=== PATIENT | female | born 1980 | race African-American/Black ===

== ENCOUNTER 2017-01-08 11:01 | Emergency (ER) | payer MEDICAID ==
[~2017-01-08] VITALS: Ht 157.5 cm; Wt 70.3 kg
[2017-01-08 12:42] VITALS: BP 105/74
[2017-01-08] MEDS ORDERED: KETOROLAC TROMETH 60MG/2ML VIAL IM ONE (15:30)
== END 2017-01-08 15:25 | disposition home or self-care (01) ==
LOC: ER 11:01
DX: M25.562 Pain in left knee (principal)
CPT/HCPCS: 29505; 73562

== ENCOUNTER 2018-09-15 14:38 | Inpatient (IN) | payer BC, MEDICAID ==
[~2018-09-15] VITALS: Ht 157.5 cm; Wt 71.7 kg
[2018-09-15] MEDS ORDERED: ASPirin 81 mg TAB PO ONE (15:30)
[2018-09-15 16:51] LABS: Basophils # (auto) 0.1 uL; Eosinophils # (auto) 0.6 uL; Eosinophils % (auto) 8.4 % (0.0-7.0); Hematocrit 36.9 % (36.0-46.0); Hemoglobin 11.9 g/dL (12.2-16.2); Lymphocytes # (auto) 2.3 uL; Lymphocytes % (auto) 34.4 % (10.0-50.0); Mean Corpuscular Hemoglobin 27.5 pg (28.0-32.0); Mean Corpuscular Hgb Conc. 32.3 g/dL (32.0-36.0); Mean Corpuscular Volume 85.2 fL (80.0-100.0); Monocytes # (auto) 0.7 uL; Monocytes % (auto) 9.9 % (0.0-12.0); Neutrophils % (auto) 46.3 % (37.0-80.0); Nucleated Red Blood Cells % 0.1 %; Platelet Count (auto) 385 10^3/uL (140-450); Red Blood Cells 4.33 10^6/uL (4.0-5.20); White Blood Cell 6.6 10^3/uL (4.4-10.8)
[2018-09-15 17:08] LABS: Albumin 3.5 g/dL (3.4-5.0); Anion Gap 5 (5-15); Aspartate Aminotransferase 16 U/L (15-37); BUN/Creatinine Ratio 14.1; Blood Urea Nitrogen 12 mg/dL (7-18); Calcium 9.1 mg/dL (8.5-10.1); Carbon Dioxide 27 mmol/L (21-32); Chloride 106 mmol/L (98-107); GFR African American 96 mL/min; GFR Non-African American 80 mL/min; Glucose 89 mg/dL (74-106); Potassium 3.6 mmol/L (3.5-5.1); Sodium 138 mmol/L (136-145)
[2018-09-15 17:16] LABS: Alanine Aminotransferase 25 U/L (13-56); Alkaline Phosphatase 69 U/L (45-117); Bilirubin, Total < 0.1 mg/dL (0.2-1.0); Total Protein 7.9 g/dL (6.4-8.2)
[2018-09-15] MEDS ORDERED: ACETAMINOPHEN 500 MG TAB PO PRN (19:00)
[2018-09-15] MEDS ORDERED: ONDANSETRON HCL 4 MG/2 ML VIAL IV PRN (19:00)
[2018-09-15] MEDS ORDERED: MORPHINE SULF INJ 2 MG/ML SYRINGE 1ML IV PRN ×2 (19:00)
[2018-09-15] MEDS ORDERED: NITROGLYCERIN 0.4 MG SL TAB SL PRN (19:00)
[2018-09-15] MEDS ORDERED: HYDROcodone-ACET 5/325MG TAB PO PRN (19:00)
[2018-09-15 19:39] LABS: INR 0.91 (0.9-1.15); Partial Thromboplastin Time 29.2 sec (23.78-33.04); Prothrombin Time 9.8 sec (9.27-12.13)
[2018-09-15 19:42] LABS: Cholesterol 157 mg/dL (< 200); Triglycerides 121 mg/dL (< 150)
[2018-09-15 19:44] LABS: HDL Cholesterol 60 mg/dL (40-59); LDL Cholesterol 85 mg/dL (< 100)
[2018-09-15 20:16] VITALS: BP 137/95
--- NOTE | 2018-09-15 20:16 | NUR ---
TELE ADMIT FROM ER RECEIVED PATIENT VIA WHEELCHAIR FROM ER. PATIENT A/O X4, AMBULATORY. NO S/S OF DISTRESS OR SOB. NO PAIN NOTED AT THIS TIME. PATIENT STATES SHE CAME TO ER BECAUSE OF SLURRED SPEECH AND TONGUE NUMBNESS. UPDATED PATIENT ON POC AND PENDING IMAGING, VERBALIZED UNDERSTANDING. BED LOCKED IN LOW POSITION, CALL LIGHT WITHIN REACH. ALL QUESTIONS AND CONCERNS ADDRESSED. WILL CONTINUE TO MONITOR PATIENT Q1HR AND PRN.
[2018-09-15 20:18] LABS: Urine Amorphous Crystal FEW /hpf (None Seen); Urine Bacteria NONE SEEN /hpf (None Seen); Urine Blood 1+ /uL (Negative); Urine Specific Gravity 1.021 (1.001-1.035); Urine WBC 1 /hpf (0 - 5)
[2018-09-15] MEDS: ATORVASTATIN 20 MG TAB PO SCH (21:35)
[2018-09-15 22:00] VITALS: BP 137/95
[2018-09-16 05:30] VITALS: BP 142/84
--- NOTE | 2018-09-16 07:20 | NUR ---
Opening Shift Note Assumed care of patient, awake and alert. No S/S of distress/SOB or pain. Instructed on POC and to call for assist PRN, will continue to monitor for changes Q1hr and PRN. Bed locked in lowest position with two side rails up and call light in reach.
[2018-09-16 08:00] VITALS: BP 133/91
[2018-09-16 08:19] VITALS: BP 133/91
[2018-09-16] MEDS ORDERED: LORazepam 2MG/ML-1ML VIAL IV PRN (08:45)
[2018-09-16] MEDS ORDERED: ASPirin-EC 81 mg tab PO SCH (10:00)
[2018-09-16 13:30] VITALS: BP 145/80
[2018-09-16] MEDS ORDERED: GADOPENTETATE DIMEGLUMINE (10MMOL/20 ML) VIAL IV ONE (14:29)
[2018-09-16 17:00] VITALS: BP 115/69
--- NOTE | 2018-09-16 19:45 | NUR ---
OPENING SHIFT NOTE RECEIVED REPORT FROM DAYSHIFT RN. PATIENT SITTING UP IN BED WITH VISITORS AT BEDSIDE. NO S/S OF DISTRESS OR SOB. NO PAIN NOTED OR REPORTED AT THIS TIME. PATIENT A/O X4, AMBULATORY. UPDATED PATIENT ON POC, VERBALIZED UNDERSTANDING. BED LOCKED IN LOW POSITION, CALL LIGHT WITHIN REACH. WILL CONTINUE TO MONITOR PATIENT Q1HR AND PRN.
[2018-09-16] MEDS: ATORVASTATIN 20 MG TAB PO SCH (21:26)
[2018-09-16 22:00] VITALS: BP 123/71
--- NOTE | 2018-09-17 00:10 | NUR ---
Report received from NIMO Barajas. Pt currently sleeping on R side. Call light at pt's side. Bed flat and in low position.
[2018-09-17 05:00] VITALS: BP 118/73
--- NOTE | 2018-09-17 07:30 | NUR ---
OPENING SHIFT NOTE: Received report from NOC RNLa Nena. Assumed care of patient. Patient resting comfortably in bed, denies pain. Bed in lowest position, rails x2 up and call light within reach. Updated on plan of care. Will continue to monitor.
[2018-09-17 09:00] VITALS: BP 116/93
--- NOTE | 2018-09-17 09:00 | NUR ---
MD: Dr Arauz to see patient. Orders received.
[2018-09-17] MEDS ORDERED: LORazepam 2MG/ML-1ML VIAL IV PRN (09:30)
--- NOTE | 2018-09-17 11:50 | NUR ---
MD: Dr Lolita Pike to see patient.
[2018-09-17 13:00] VITALS: BP 125/84
--- NOTE | 2018-09-17 13:20 | NUR ---
MRI: Patient to MRI via wheel chair.
[2018-09-17] MEDS ORDERED: GADOPENTETATE DIMEGLUMINE (10MMOL/20 ML) VIAL IV ONE (13:31)
--- NOTE | 2018-09-17 13:50 | NUR ---
MRI: Patient returned from MRI. No signs of distress.
[2018-09-17 16:52] VITALS: BP 142/79
--- NOTE | 2018-09-17 19:08 | NUR ---
CLOSING SHIFT NOTE: Report given to NOC RNJeremy. Endorsed care of patient.
--- NOTE | 2018-09-17 19:30 | NUR ---
Opening Shift Note Assumed care of patient, awake and alert x4. No S/S of distress/SOB on ROOM AIR. Denies pain at this time. Bed locked in lowest position call light within reach. Instructed on POC and to call for assist PRN, will continue to monitor for changes Q1hr and PRN.
[2018-09-17 21:30] VITALS: BP 124/75
[2018-09-18 05:00] VITALS: BP 115/64
--- NOTE | 2018-09-18 07:30 | NUR ---
OPENING SHIFT NOTE: Received report from NOC RNJeremy. Assumed care of patient. Patient resting quietly in bed. No signs/symptoms of pain. Bed in lowest position, rails x2 up and call light within reach. Updated board on plan of care. Will continue to monitor.
[2018-09-18 08:03] VITALS: BP 113/73
--- NOTE | 2018-09-18 08:21 | NUR ---
MD: Dr Arauz on unit to see patient.
--- NOTE | 2018-09-18 10:30 | NUR ---
MD: Dr Lolita Pike to see patient.
[2018-09-18] MEDS ORDERED: LIDOCAINE 2%HCL (LOCAL ANESTH.) INJ 20ML MDV ONE (10:39)
--- NOTE | 2018-09-18 11:00 | NUR ---
RADIOLOGY: Patient taken via bed to radiology for lumbar puncture.
--- NOTE | 2018-09-18 11:40 | NUR ---
RADIOLOGY: Patient returned via bed. Patient aware of amount of time to lay flat after procedure.
[2018-09-18 12:07] VITALS: BP 129/73
[2018-09-18 13:48] LABS: Protein, CSF 33.1 mg/dL (15-45)
[2018-09-18 14:53] LABS: CSF White Blood Cells 28.8 CUMM (0-5)
[2018-09-18 16:33] VITALS: BP 131/89
--- NOTE | 2018-09-18 17:45 | NUR ---
Patient ambulating on and off unit with family.
--- NOTE | 2018-09-18 19:12 | NUR ---
CLOSING SHIFT NOTE: Report given to NOC RNJeremy. Endorsed care of patient.
[2018-09-18 21:30] VITALS: BP 125/65
[2018-09-19 05:00] VITALS: BP 122/72
[2018-09-19 06:06] LABS: Serum Albumin 4.1 g/dL (3.5-5.5)
--- NOTE | 2018-09-19 07:50 | NUR ---
Opening Shift Note Assumed care of patient, awake, A&ox4. No S/S of distress/SOB or pain. Bed at lowest position and call light within reach. Instructed on POC and to call for assistance PRN, will continue to monitor for changes Q1hr and PRN.
[2018-09-19 08:00] VITALS: BP 116/75
[2018-09-19 08:10] LABS: Immunoglobulin G, Serum 1700 mg/dL (700-1600)
[2018-09-19 09:00] VITALS: BP 116/75
[2018-09-19 13:00] VITALS: BP 134/82
--- NOTE | 2018-09-19 14:30 | NUR ---
Discharge instructions given as ordered. Encourage to follow up with PMD as instructed. All questions and concerns addressed. Patient verbalized understanding. IV removed with catheter intact, pressure dressing applied. Telemetry unit returned to ICU. Patient ambulated to vehicle with all personal belongings, accompanied by staff and family members. No distress noted at time of departure.
[2018-09-22 14:11] LABS: Albumin, CSF 13 mg/dL (11-48); CSF IgG Index 0.9 (0.0-0.7); CSF/Serum Alb. Index 3 (0-8); IgG, Quant, CSF 4.8 mg/dL (0.0-8.6); IgG, Syn Rate,CSF 5.3 mg/day (-9.9 TO +3.3); IgG/Alb Ratio, CSF 0.37 (0.00-0.25)
== END 2018-09-19 14:30 | disposition home or self-care (01) | DRG 69 ==
LOC: ER 14:40 → TELE 18:49 → TELE-WESTW 20:16
PROVIDERS: ADMIT Nurse Practitioner Acute Care; ATTEND Family Medicine
PROC: 009U3ZZ Drainage of Spinal Canal, Percutaneous Approach (ICD-10-PCS; principal; 2018-09-18)
PROC: B01B1ZZ Fluoroscopy of Spinal Cord using Low Osmolar Contrast (ICD-10-PCS; 2018-09-18)
DX: G45.9 Transient cerebral ischemic attack, unspecified (principal); D64.9 Anemia, unspecified; F41.9 Anxiety disorder, unspecified; G93.9 Disorder of brain, unspecified; M50.222 Other cervical disc displacement at C5-C6 level; Z79.82 Long term (current) use of aspirin; Z79.899 Other long term (current) drug therapy; Z82.3 Family history of stroke; Z82.49 Family history of ischemic heart disease and other diseases of the circulatory system
CPT/HCPCS: 36415; 62272; 70450; 70545; 70551; 70553; 72142; 80053; 80061; 81001; 81241; 82042; 82164; 82784; 82945; 84157; 84443; 84484; 84702; 85025; 85301; 85302; 85303; 85305; 85306; 85379; 85610; 85613; 85670; 85705; 85730; 85732; 86147; 89051; 93005; 93306; 93886; G0378

== ENCOUNTER 2025-04-02 17:59 | Emergency (ER) | payer SELFPAY ==
[~2025-04-02] VITALS: Ht 157.5 cm; Wt 79.5 kg
--- NOTE | 2025-04-02 18:15 | ECG ---
[facility] Test Date: 2025-04-02 Test Time: 18:07:05 Pat Name: GENARO DORSEY Department: Room: Gender: F Facilities Technician: HANANE : 1980 Requested By: EMERGENCY EMERGENCY Order Number: [id number] Reading MD: Prasanna Mann Measurements Intervals [place] Rate: 124 P: 59 IA: 137 QRS: 27 QRSD: 63 T: 147 QT: 316 QTc: 454 Interpretive Statements Sinus tachycardia Probable left atrial enlargement Borderline repolarization abnormality Electronically Signed On 04-05-2025 15:00:47 PDT by Praasnna Mann Please click the below link to view image of tracing.
--- NOTE | 2025-04-02 18:43 | ED.PDOC ---
HPI Comments 44 year old female came to ER due to palpitations. Patient has history of hypertension. At about 1600 hours she developed episodes of palpitations, which persisted. Denies any acute chest pains,dizziness or shortness of breath. Patient admits that she is stressed at work REVIEW OF SYSTEMS: General: No fever, no chills, or fatigue HEENT: No sore throat, no earache, no congestion, no neck pain. Cardiac: No chest pain. (+) palpitations. Lungs: No shortness of breath, no cough. GI: No nausea, no vomiting, no diarrhea, no constipation, no abdominal pain : No dysuria, frequency, or urgency. No hematuria. Musculoskeletal: No joint pain , no joint swelling, no extremity edema. Skin: No rash, no itching. Neuro: No headache, no dizziness, no weakness EXAM: General: Awake, alert and oriented. No acute distress. Skin: Skin in warm, dry and intact. Appropriate color for ethnicity. HEENT: The head is normocephalic and atraumatic. Conjunctivae are clear without exudates or hemorrhage. Sclera is non-icteric. EOM are intact. No signs of nystagmus. Eyelids are normal in appearance without swelling or lesions. Oral mucosa is pink and moist Neck: The neck is supple with normal range of motion. No JVD. Cardiac: Rapid rate, regular rhythm No murmurs, gallops, or rubs are auscultated. Respiratory: No signs of respiratory distress. Lung sounds are clear in all lobes bilaterally without rales, rhonchi, or wheezes. Abdominal: Abdomen is soft, non-tender without distention. Bowel sounds are present and normoactive in all four quadrants. Extremities: Upper and lower extremities are atraumatic in appearance without deformity or edema. Neurological: The patient is awake, alert and oriented to person, place, and time with normal speech. Speech is clear. There is no facial asymmetry. Psychiatric: Appropriate mood and affect. Good judgement and insight Chief Complaint: Palpitations Time Seen by MD: 18:43 Primary Care Provider: DR JIMENEZ Reviewed Notes: Nurses Notes Allergies: Coded Allergies: Penicillins (Verified Allergy, Severe, RASH, 09/15/18) Banana (Verified Allergy, Unknown, 04/02/25) Sulfamethoxazole w/Trimethoprim (Verified Allergy, Unknown, 04/02/25) Uncoded Allergies: WATERMELON (Allergy, Unknown, 04/02/25) Home Meds No Active Prescriptions or Reported Meds Information Source: Patient Mode of Arrival: Ambulatory Severity: Moderate Timing: Hours Past Medical History PAST MEDICAL HISTORY: HTN Surgical History: Denies all surgeries LINE RUNNER History: No Pertinent LINE RUNNER History Family History Family History: Family hx of stroke Social History Smoker: Non-Smoker Alcohol: Denies ETOH Use Drugs: Denies Drug Use Lives In: Home EKG EKG : Pulse Rate (adult): 124 Cardiac Rhythm: ST Was a procedure done? Was a procedure done?: No CP Differential Dx Differential Diagnosis: Angina, Anxiety / Panic Attack, Electrolyte Disorder, Hyperthyroidism, Hyperventilation, Hypoxia, Pulmonary Embolus, Sinus Tachycardia X-Ray, Labs, Meds, VS Vital Signs Date Time Temp Pulse Resp B/P (MAP) Pulse Ox O2 Delivery O2 Flow Rate FiO2 04/02/25 22:11 98.1 105 16 150/76 (100) 100 98.1 04/02/25 21:09 105 16 100 Room Air* 0 21 04/02/25 21:09 98.2 105 16 125/73 (90) 100 98.2 04/02/25 18:43 124 04/02/25 18:34 100 Room Air* 0 21 04/02/25 18:34 127 04/02/25 18:33 98.3 127 19 148/79 (102) 100 98.3 04/02/25 18:07 124 04/02/25 18:01 98.2 130 18 151/94 100 98.2 Lab Test 04/02/25 20:44 04/02/25 19:52 Range/Units Troponin I High Sensitivity < 3 L < 3 L </=34 ng/L White Blood Count 8.2 4.4-10.8 10^3/uL Red Blood Count 4.52 4.0-5.20 10^6/uL Hemoglobin 12.4 12.2-16.2 g/dL Hematocrit 37.5 36.0-46.0 % Mean Corpuscular Volume 83.0 80.0-100.0 fL Mean Corpuscular Hemoglobin 27.5 L 28.0-32.0 pg Mean Corpuscular Hemoglobin Concent 33.2 32.0-36.0 g/dL Red Cell Distribution Width 14.2 11.8-14.3 % Platelet Count 337 140-450 10^3/uL Mean Platelet Volume 8.0 6.9-10.8 fL Neutrophils (%) (Auto) 60.5 37.0-80.0 % Lymphocytes (%) (Auto) 25.5 10.0-50.0 % Monocytes (%) (Auto) 10.1 0.0-12.0 % Eosinophils (%) (Auto) 3.2 0.0-7.0 % Basophils (%) (Auto) 0.7 0.0-2.0 % Neutrophils # (Auto) 4.9 1.6-8.6 10 ^3/uL Lymphocytes # (Auto) 2.1 0.4-5.4 10 ^3/uL Monocytes # (Auto) 0.8 0-1.3 10 ^3/uL Eosinophils # (Auto) 0.3 0-0.8 10 ^3/uL Basophils # (Auto) 0.1 0-0.2 10 ^3/uL Nucleated Red Blood Cells 0.0 % Sodium Level 140 136-145 mmol/L Potassium Level 3.6 3.5-5.1 mmol/L Chloride Level 101 98-107 mmol/L Carbon Dioxide Level 29 20-31 mmol/L Anion Gap 10 5-15 Blood Urea Nitrogen 12 9-23 mg/dL Creatinine 1.07 H 0.550-1.02 mg/dL Glomerular Filtration Rate Calc 66 >90 mL/min BUN/Creatinine Ratio 11.2 10.0-20.0 Serum Glucose 89 74-106 mg/dL Calcium Level 10.2 8.7-10.4 mg/dL B-Type Natriuretic Peptide 1.45 0-100 pg/mL Current Medications Medications (Trade) Dose Ordered Sig/[facility] Route Start Time Stop Time Status Last Admin Aspirin 324 mg ONCE ONCE PO 04/02/25 19:45 04/02/25 19:46 DC 04/02/25 21:09 Sodium Chloride 1,000 ml @ 1,000 mls/hr Q1H ONCE IV 04/02/25 19:45 04/02/25 20:44 DC 04/02/25 21:09 CHEST RADIOGRAPH Indication: cp Technique: Single frontal view of the chest was obtained COMPARISON: None FINDINGS: Lines and Tubes: None Lungs: Clear Pleura: No effusion. No pneumothorax. Cardiomediastinal contours: Unremarkable Bones: Unremarkable IMPRESSION: 1. No acute disease. Time of 1ST Reevaluation: 18:40 Reevaluation 1ST: Unchanged Patient Education/Counseling: Need For Follow Up Family Education/Counseling: No Family Present SEPSIS Sepsis Screen Date sepsis recognized/suspect: Apr 02, 2025 Time Sepsis recognized/suspect: 1801 Recent Procedure: No On Antibiotic Therapy: No Respiratory Rate >20: No Heart Rate >90: Yes Temp<36 C (96.8 F) or >38.3 C: No SBP <90 or MAP <65 mmHG: No New Acute Mental Status Change: No Is the patient on CPAP, BIPAP,: No Physician Orders Electrocardigram (04/02/25 19:41) Chest Xray 1 View (04/02/25 19:41) Vital Signs Q1HR (04/02/25 19:41) Saline Lock (04/02/25 19:41) Garden Implement Mechanic (04/02/25 ) Electrocardigram (04/02/25 20:41) Electrocardigram (04/02/25 22:41) Vital Signs Date Time Temp Pulse Resp B/P (MAP) Pulse Ox O2 Delivery O2 Flow Rate FiO2 04/02/25 22:11 98.1 105 16 150/76 (100) 100 98.1 04/02/25 21:09 105 16 100 Room Air* 0 21 04/02/25 21:09 98.2 105 16 125/73 (90) 100 98.2 04/02/25 18:43 124 04/02/25 18:34 100 Room Air* 0 21 04/02/25 18:34 127 04/02/25 18:33 98.3 127 19 148/79 (102) 100 98.3 04/02/25 18:07 124 04/02/25 18:01 98.2 130 18 151/94 100 98.2 Laboratory Tests Test 04/02/25 19:52 White Blood Count 8.2 10^3/uL (4.4-10.8) Medications Medications Dose Ordered Sig/Judy Route Start Time Stop Time Status Last Admin Dose Admin Aspirin 324 mg ONCE ONCE PO 04/02/25 19:45 04/02/25 19:46 DC 04/02/25 21:09 Sodium Chloride 1,000 ml @ 1,000 mls/hr Q1H ONCE IV 04/02/25 19:45 04/02/25 20:44 DC 04/02/25 21:09 Departure 1 Departure Time of Disposition: 23:25 Impression: Primary Impression: Sinus tachycardia Disposition: HOME / SELF CARE / HOMELESS Condition: Stable Additional Instructions: ED DISCHARGE INSTRUCTIONS Instructions: Please read all instructions provided in this packet carefully. Although you have been discharged from the Emergency Department, this does not mean that you have a "clean bill of health". No definitive diagnosis for your symptoms has been made today. It is possible that you are in the process of developing a serious illness. This is why you must return to the ED without fail if any new or worsening symptoms (especially if your symptoms include chest pain, trouble breathing, abdominal pain, fever, headache, confusion, trouble seeing, or trouble walking) It is also very important that you see a primary care provider (PCP) within the next 3-5 days to follow up. If you are unable to get an appointment, return to the ED for re-evaluation. PALPITATIONS EDUCATION Heart palpitations are the uncomfortable sensation that your heart is beating fast or irregularly. You might feel pounding or fluttering in your chest. It might feel like your heart is skipping a beat. Palpitations may be caused by a heart problem. But they also occur because of many other things. These include other health problems, stress, exercise, or use of alcohol, caffeine, or nicotine. Some prescription medicines and lake-syt-ayrvdte medicines can also cause heart palpitations. Nearly everyone has palpitations from time to time. Depending on your symptoms, your doctor may need to do more tests to try to find the cause of your palpitations. Follow-up care is a haas part of your treatment and safety. Be sure to make and go to all appointments, and call your doctor if you are having problems. It's also a good idea to know your test results and keep a list of the medicines you take. How can you care for yourself at home? If they trigger palpitations, limit or avoid alcohol or caffeine. Do not smoke. If you need help quitting, talk to your doctor about stop-smoking programs and medicines. These can increase your chances of quitting for good. Ask your doctor whether you can take kjwr-urm-nxlkdby medicines (such as decongestants). These may cause palpitations. If you think you may have a problem with drug use, talk to your doctor. Certain drugs, such as cocaine and methamphetamine, can affect your heart rate and rhythm. If you have palpitations again, take deep breaths and try to relax. Or try any physical things that your doctor recommended. These may include bearing down or coughing. If you start to feel lightheaded, sit or lie down to avoid injuries that might result if you pass out and fall down. If your doctor recommends it, keep a record of your palpitations and bring it to your next doctor's appointment. Write down: The date and time. Your pulse. (If your heart is beating fast, it may be hard to count your pulse.) If your heart rhythm was regular or irregular. What you were doing when the palpitations started. How long the palpitations lasted. Any other symptoms. What may have helped your symptoms go away. If an activity causes palpitations, slow down or stop. Talk to your doctor before you do that activity again. Take your medicines exactly as prescribed. Call your doctor if you think you are having a problem with your medicine. When should you call for help? Call 911 anytime you think you may need emergency care. For example, call if: You passed out (lost consciousness). You have symptoms of a heart attack. These may include: Chest pain or pressure, or a strange feeling in the chest. Sweating. Shortness of breath. Pain, pressure, or a strange feeling in the back, neck, jaw, or upper belly or in one or both shoulders or arms. Lightheadedness or sudden weakness. A fast or irregular heartbeat. After you call 911, the cable ferryboat operator may tell you to chew 1 adult-strength or 2 to 4 low-dose aspirin. Wait for an ambulance. Do not try to drive yourself. You have symptoms of a stroke. These may include: Sudden numbness, tingling, weakness, or loss of movement in your face, arm, or leg, especially on only one side of your body. Sudden vision changes. Sudden trouble speaking. Sudden confusion or trouble understanding simple statements. Sudden problems with walking or balance. A sudden, severe headache that is different from past headaches. Call your doctor now or seek immediate medical care if: You have heart palpitations and: Are dizzy or lightheaded, or you feel like you may faint. Have new or increased shortness of breath. Watch closely for changes in your health, and be sure to contact your doctor if: You continue to have heart palpitations. Current as of: January 08, 2024 Author: Janiya VividWorksKATIA Staff? e-Prescriptions No Active Prescriptions or Reported Meds Comments MDM: 44-year-old female with a palpitations, sinus tachycardia. Heart rate somewhat improved after IV fluids. Patient was offered admission for further treatment, observation and evaluation. Discussed risks, benefits and return precautions with the patient. The patient is declined admission and is requesting to be discharged home to follow up with the primary care provider as an outpatient. Patient well-appearing, nontoxic. Advised prompt follow-up with PCP, return to the ED with any new, worsening or concerning symptoms. - I reviewed the following notes from the pt's past medical encounters: N/A The following tests were ordered, and results were reviewed by me: (See diagnostic results section) The following test were independently interpreted by me: EKG, chest x-ray-no acute disease Additional information was gathered from interviewing the following independent historians: N/A I reviewed and agreed with the following test results read by other providers: Chest x-ray I discussed treatments and results with patient Decision regarding hospitalization or escalation of hospital level of care: Risks and benefits of admission for further treatment of patient's condition was considered however due to patient's stable condition patient will be discharged to follow up closely or return to care for worsening of condition or inability to follow up. Critical Care Note Critical Care Time?: Yes (35 min-critical care time only) Critical care comment: tachycardia Stability Stability form required: No Heart Score Heart Score: Heart Score Response (Comments) Value History Slightly Suspicious 0 EKG Repolarization Disturb 1 Age <45 0 Risk Factors 1 or 2 risk factors 1 Troponin Normal limit 0 Total 2 I personally scribed for MATEUSZ CELESTE MD ([email or web address]) on 04/02/25 at 18:43. Electronically submitted by Jose Rosenthal ([email or web address]). I personally scribed for MATEUSZ CELESTE MD ([email or web address]) on 04/02/25 at 20:38. Electronically submitted by Jose Rosenthal ([email or web address]). MATEUSZ CELESTE MD Apr 02, 2025 18:43
[2025-04-02 20:13] LABS: Hematocrit 37.5 % (36.0-46.0); Hemoglobin 12.4 g/dL (12.2-16.2); Mean Corpuscular Hemoglobin 27.5 pg (28.0-32.0); Mean Corpuscular Volume 83.0 fL (80.0-100.0); Nucleated Red Blood Cells % 0.0 %
--- NOTE | 2025-04-02 20:17 | DVH ---
CHEST RADIOGRAPH Indication: cp Technique: Single frontal view of the chest was obtained COMPARISON: None FINDINGS: Lines and Tubes: None Lungs: Clear Pleura: No effusion. No pneumothorax. Cardiomediastinal contours: Unremarkable Bones: Unremarkable IMPRESSION: 1. No acute disease.
[2025-04-02 20:19] LABS: Chloride 101 mmol/L (98-107); Potassium 3.6 mmol/L (3.5-5.1); Sodium 140 mmol/L (136-145)
[2025-04-02 20:20] LABS: Anion Gap 10 (5-15); Carbon Dioxide 29 mmol/L (20-31)
[2025-04-02 20:21] LABS: Calcium 10.2 mg/dL (8.7-10.4)
[2025-04-02 20:25] LABS: BUN/Creatinine Ratio 11.2 (10.0-20.0); Blood Urea Nitrogen 12 mg/dL (9-23); Glucose 89 mg/dL (74-106)
[2025-04-02 21:09] VITALS: PULSE 105; RESP 16; O2SAT 100
[2025-04-02] MEDS: SODIUM CHLORIDE 0.9% 1,000 ML IV ONE (21:09)
[2025-04-02] MEDS: MORPHINE SULFATE INJ 2 MG/ml SYRG IV ONE (21:10)
[2025-04-02 23:36] VITALS: BP 126/84; PULSE 95; RESP 18; TEMP 99.7; O2SAT 98
== END 2025-04-02 23:36 | disposition home or self-care (01) ==
LOC: ER 17:59
DX: R00.0 Tachycardia, unspecified (principal); I10 Essential (primary) hypertension; Z91.018 Allergy to other foods; Z88.2 Allergy status to sulfonamides; Z88.1 Allergy status to other antibiotic agents; Z88.0 Allergy status to penicillin
CPT/HCPCS: 36415; 71045; 80048; 83880; 84484; 85025; 93005; 96360; 99285; J7030

== ENCOUNTER 2025-04-03 08:09 | Emergency (ER) | payer BC, OTHER ==
[~2025-04-03] VITALS: Ht 157.5 cm; Wt 80.5 kg
--- NOTE | 2025-04-03 08:16 | ED.PDOC ---
HPI Comments This is a 44 y ear-old female with a Hx of HTN who presents to the ED with a chief complaint of persistent palpitations and mild chest pain as of 1600 yesterday. Patient was seen last night for the same issue, offered admission, but declined. Patient returned to the ED today for further evaluation and possible admission. Patient states chest pain is exacerbated with inhalation, no known alleviating factors. Patients previous chest XRAY taken last night showed no abnormalities. Patient has no further complaints at this time and otherwise denies further associated symptoms of SOB, cough, dizziness, weakness, headache, fever, or chills. Chief Complaint: Palpitations Time Seen by MD: 08:24 Primary Care Provider: DR JIMENEZ Reviewed Notes: Medications, Allergies Allergies: Coded Allergies: Penicillins (Verified Allergy, Severe, RASH, 09/15/18) Banana (Verified Allergy, Unknown, 04/02/25) Sulfamethoxazole w/Trimethoprim (Verified Allergy, Unknown, 04/02/25) Uncoded Allergies: WATERMELON (Allergy, Unknown, 04/02/25) Home Meds No Active Prescriptions or Reported Meds Information Source: Patient Mode of Arrival: Ambulatory Severity: Moderate Timing: Hours Duration: Since onset Associated Signs and Symptoms: Palpitations Past Medical History PAST MEDICAL HISTORY: HTN Surgical History: Denies all surgeries SENIOR QA AUTOMATION ENGINEER History: No Pertinent SENIOR QA AUTOMATION ENGINEER History Family History Family History: Family hx of stroke Social History Smoker: Non-Smoker Alcohol: Denies ETOH Use Drugs: Denies Drug Use Lives In: Home Constitutional: denies: chills, diaphoresis, fatigue, fever, malaise, sweats, weakness, others EENTM: denies: blurred vision, double vision, ear bleeding, ear discharge, ear drainage, ear pain, ear ringing, eye pain, eye redness, hearing loss, mouth pain, mouth swelling, nasal discharge, nose bleeding, nose congestion, nose pa in, photophobia, tearing, throat pain, throat swelling, voice changes, others Respiratory: denies: cough, hemoptysis, orthopnea, SOB at rest, shortness of breath, SOB with excertion, stridor, wheezing, others Cardiovascular: reports: chest pain, palpitations; denies: dizzy spells, diaphoresis, Dyspnea on exertion, edema, irregular heart beat, left arm pain, lightheadedness, PND, syncope, others Gastrointestinal: denies: abdomen distended, abdominal pain, blood streaked bowels, constipated, diarrhea, dysphagia, difficulty swallowing, hematemesis, melena, nausea, poor appetite, poor fluid intake, rectal bleeding, rectal pain, vomiting, others Genitourinary: denies: abnormal vagina bleeding, burning, dyspareunia, dysuria, flank pain, frequency, hematuria, incontinence, pain, , vagina discharge, urgency, others Neurological: denies: dizziness, fainting, headache, left sided numbness, left sided weakness, numbness, paresthesia, pre-existing deficit, right sided numbness, right sided weakness, seizure, speech problems, tingling, tremors, weakness, others Musculoskeletal: denies: back pain, gout, joint pain, joint swelling, muscle pain, muscle stiffness, neck pain, others Integumetry: denies: bruises, change in color, change in hair/nails, dryness, laceration, lesions, lumps, rash, wounds, others Allergic/Immunocompromised: denies: Difficulty Healing, Frequent Infections, Hives, Itching, others Hematologic/Lymphatic: denies: anemia, blood clots, easy bleeding, easy bruising, swollen glands, others Endocrine: denies: excessive hunger, excessive sweating, excessive thirst, excessive urination, flushing, intolerance to cold, intolerance to heat, unexplained weight gain, unexplained weight loss, others Psychiatric: denies: anxiety, bipolar disorder, depression, hopeless, panic disorder, schizophrenia, sleepless, suicidal, others All Other Systems: Reviewed and Negative Physical Exam General Appearance: Moderate Distress HEENT: Normal ENT Inspection, Pharynx Normal, TMs Normal Neck: Full Range of Motion, Non-Tender, Normal, Normal Inspection Respiratory: Chest Non-Tender, Lungs Clear, No Accessory Muscle Use, No Respiratory Distress, Normal Breath Sounds Cardiovascular: No Edema, No JVD, No Murmur, No Gallop, Normal Peripheral Pulses, Regular Rate/Rhythm Breast Exam: Deferred Gastrointestinal: No Organomegaly, Non Tender, No Pulsatile Mass, Normal Bowel Sounds, Soft Genitalia: Deferred Pelvic: Deferred Rectal: Deferred Extremities: No calf tenderness, Normal capillary refill, Normal inspection, Normal range of motion, Non-tender, No pedal edema Musculoskeletal : Apperance: Normal Neurologic: Alert, transportation project manager II-XII nml as Tested, No Motor Deficits, Normal Affect, Normal Mood, No Sensory Deficits Cerebellar Function: Normal Reflexes: Normal Skin: Dry, Normal Color, Warm Peripheral Pulses: 3+ Radial (R), 3+ Radial (L) Lymphatic: No Adenopathy EKG EKG : Pulse Rate (adult): 101 [place]: Normal Cardiac Rhythm: ST Block: None Hypertrophy: None ST: Normal Was a procedure done? Was a procedure done?: No CP Differential Dx Differential Diagnosis: A-fib, A-Flutter, Angina, Anxiety / Panic Attack, Atrial Dysrhythmia, Electrolyte Disorder, Sinus Tachycardia Differential Diagnosis: CHF, HTN Essential, HTN Accelerated Differential Diagnosis: Angina, Aortic dissection, Chest Wall Pain, Cholelithiasis, Gastritis, Pneumonia X-Ray, Labs, Meds, VS Vital Signs Date Time Temp Pulse Resp B/P (MAP) Pulse Ox O2 Delivery O2 Flow Rate FiO2 04/03/25 08:22 101 04/03/25 08:19 101 04/03/25 08:11 98.1 112 18 155/94 100 98.1 Lab Test 04/03/25 08:30 Range/Units Troponin I High Sensitivity Pending Patient alert. Complaining of palpitations. Was seen here for the same condition yesterday. Saturation pristine on room air. Reviewed her previous visit. Cardiac marker within normal limits. Mild elevation blood pressure. No leg swelling. No calf tenderness. No acute distress. EKG reviewed does not show any acute changes pain She will need thyroid workup. Explained to the patient. Was told to follow up with her primary care physician. Was told to come back if there is any problem. Images Reviewed?: Images reviewed and evaluated by me Time of 1ST Reevaluation: 09:15 Reevaluation 1ST: Unchanged Patient Education/Counseling: Diagnosis, Treatment Family Education/Counseling: No Family Present SEPSIS Sepsis Screen Physician Orders Electrocardigram (04/03/25 09:10) Electrocardigram (04/03/25 11:10) Troponin-I Hs (04/03/25 08:10) Troponin-I Hs (04/03/25 09:10) Troponin-I Hs (04/03/25 11:10) Vital Signs Date Time Temp Pulse Resp B/P (MAP) Pulse Ox O2 Delivery O2 Flow Rate FiO2 04/03/25 08:22 101 04/03/25 08:19 101 04/03/25 08:11 98.1 112 18 155/94 100 98.1 Departure 1 Departure Time of Disposition: 08:52 Impression: Primary Impression: HTN (hypertension) Qualified Codes: I10 - Essential (primary) hypertension Additional Impression: Palpitation Disposition: HOME / SELF CARE / HOMELESS Condition: Good e-Prescriptions No Active Prescriptions or Reported Meds Discharged With: Self Critical Care Note Critical Care Time?: No Stability Stability form required: No Heart Score Heart Score: Heart Score Response (Comments) Value History Moderate Suspicious 1 EKG Normal 0 Age <45 0 Risk Factors 1 or 2 risk factors 1 Troponin Normal limit 0 Total 2 I personally scribed for RENU MART MD ([email or web address]) on 04/03/25 at 08:16. Electronically submitted by Pooja Restrepo ([employer]). I personally scribed for RENU MART MD ([email or web address]) on 04/03/25 at 08:22. Electronically submitted by Pooja Restrepo ([employer]). I personally scribed for RENU MART MD ([email or web address]) on 04/03/25 at 08:35. Electronically submitted by Pooja Restrepo ([employer]). RENU MART MD Apr 03, 2025 08:16
--- NOTE | 2025-04-03 08:20 | ECG ---
[facility] Test Date: 2025-04-03 Test Time: 08:19:18 Pat Name: GENARO DORSEY Department: Room: Gender: F Photograph Finisher: ABIEL : 1980 Requested By: RENU MART Order Number: [id number] Reading MD: Prasanna Mann Measurements Intervals [place] Rate: 101 P: 61 TN: 141 QRS: 13 QRSD: 69 T: 55 QT: 326 QTc: 423 Interpretive Statements Sinus tachycardia Probable left atrial enlargement Borderline T wave abnormalities Electronically Signed On 04-05-2025 15:09:22 PDT by Prasanna Mann Please click the below link to view image of tracing.
[2025-04-03 09:04] VITALS: BP 132/72; RESP 18; TEMP 98.2; O2SAT 98
[2025-04-03 09:32] VITALS: PULSE 78
--- NOTE | 2025-04-03 09:33 | ECG ---
[facility] Test Date: 2025-04-03 Test Time: 09:32:21 Pat Name: GENARO DORSEY Department: Room: Gender: F Training Technician: KARIE : 1980 Requested By: RENU MART Order Number: [id number] Reading MD: Prasanna Mann Measurements Intervals [place] Rate: 78 P: 30 UT: 136 QRS: -4 QRSD: 76 T: 57 QT: 368 QTc: 420 Interpretive Statements Sinus rhythm Borderline T wave abnormalities Electronically Signed On 04-05-2025 15:09:23 PDT by Prasanna Mann Please click the below link to view image of tracing.
== END 2025-04-03 10:42 | disposition home or self-care (01) ==
LOC: ER 08:09
DX: I10 Essential (primary) hypertension (principal); R00.2 Palpitations; Z91.018 Allergy to other foods; Z88.2 Allergy status to sulfonamides; Z88.1 Allergy status to other antibiotic agents; Z88.0 Allergy status to penicillin
CPT/HCPCS: 36415; 84484; 93005